=== PATIENT | female | born 2000 | race Caucasian/White ===

== ENCOUNTER 2019-03-22 12:16 | Emergency (ER) | payer BC, MEDICAID ==
[~2019-03-22] VITALS: Ht 154.9 cm; Wt 56.7 kg
[2019-03-22 12:27] VITALS: BP_SYST 127
[2019-03-22] MEDS ORDERED: ONDANSETRON HCL 4 MG/2 ML VIAL IVP ONE (12:45)
[2019-03-22] MEDS ORDERED: NACL 0.9% 1,000 ML IV ONE (12:45)
[2019-03-22] MEDS ORDERED: MORPHINE 4 MG/ML INJ. SYRINGE IVP ONE (12:45)
--- NOTE | 2019-03-22 12:45 | NUR ---
Patient to ER bed 6 to gown for evaluation. Side rails up. Report given to Prosper NEAL.
--- NOTE | 2019-03-22 12:48 | NUR ---
Patient is awake, alert, and oriented x4. is at bedside. Patient reports nausea, vomiting, diarrhea, and abdominal pain since this morning. Patient also reports a similar episode 4 weeks ago that resolved after 12 hours.
--- NOTE | 2019-03-22 12:59 | NUR ---
Patient refused morphine, states she does not want any pain medication. Dr. Kamille Donahue made aware.
[2019-03-22 13:08] LABS: BASOPHILS % (AUTO) 0.3 % (0.0-2.0); EOSINOPHILS # (AUTO) 0.2 K/uL (0.0-0.4); EOSINOPHILS % (AUTO) 1.4 % (0.0-4.0); HEMATOCRIT 43.6 % (36-48); HEMOGLOBIN 14.9 g/dL (12.0-16.0); LYMPHOCYTES # (AUTO) 1.7 K/uL (1.0-5.5); LYMPHOCYTES % (AUTO) 11.4 % (20.5-51.5); MEAN CORPUSCULAR HEMOGLOBIN 33 pg (27-31); MEAN CORPUSCULAR HGB CONC 34 % (32-36); MEAN CORPUSCULAR VOLUME 97 fL (79.0-98.0); MONOCYTES # (AUTO) 1.1 K/uL (0.0-1.0); MONOCYTES % (AUTO) 7.1 % (1.7-9.3); NEUTROPHILS # (AUTO) 12.2 K/uL (1.8-7.7); NEUTROPHILS % (AUTO) 79.8 % (40.0-70.0); PLATELET COUNT (AUTO) 312 K/uL (130-430); RED BLOOD CELL COUNT(AUTO) 4.49 MIL/uL (4.2-6.2); RED CELL DISTRIBUTION WIDTH 13.4 % (9.0-15.0); WHITE BLOOD COUNT (AUTO) 15.3 K/uL (4.8-10.8)
[2019-03-22 13:08] LABS: BILIRUBIN,URINE NEGATIVE (NEGATIVE); BLOOD, URINE NEGATIVE (NEGATIVE); CLARITY/URINE SL CLOUDY (CLEAR); COLOR,URINE YELLOW (YELLOW); GLUCOSE,URINE NEGATIVE (NEGATIVE); KETONES,URINE NEGATIVE (NEGATIVE); LEUKOCYTE ESTERASE ,URINE TRACE (NEGATIVE); NITRITE, URINE NEGATIVE (NEGATIVE); PROTEIN URINE TRACE (NEGATIVE); UROBILINOGEN,URINE 0.2 (0.2-1.0)
[2019-03-22 13:17] LABS: BACTERIA,URINE MODERATE /HPF (None Seen); RBC,URINE 0-3 /HPF (0-3)
[2019-03-22 13:18] LABS: FINE GRANULAR CASTS,URINE 0-10 /LPF (None Seen)
[2019-03-22 13:22] LABS: CREATININE 0.99 mg/dL (0.55-1.30)
[2019-03-22 13:27] LABS: ALBUMIN 4.4 g/dL (3.4-4.8); TOTAL BILIRUBIN 1.6 mg/dL (0.0-1.0)
[2019-03-22] MEDS ORDERED: cefTRIAXone 1 GM IVPB PREMIX 50 ML IV ONE (13:45)
--- NOTE | 2019-03-22 14:47 | NUR ---
Patient given written and verbal discharge instructions and verbalizes understanding. ER MD discussed with patient the results and treatment provided. Patient in stable condition. ID arm band removed. IV catheter removed intact and dressing applied, no active bleeding. Rx of zofran, tylenol, keflex given. Patient educated on pain management and to follow up with PMD. Pain Scale 0/10. Opportunity for questions provided and answered. Medication side effect fact sheet provided.
[2019-03-22 14:48] VITALS: BP_SYST 128
== END 2019-03-22 14:48 | disposition home or self-care (01) ==
LOC: SED 12:16
DX: N39.0 Urinary tract infection, site not specified (principal); R11.10 Vomiting, unspecified; R19.7 Diarrhea, unspecified
CPT/HCPCS: 36415; 80053; 81000; 81025; 83690; 85025; 87086; 96361; 96365; 96375; 99283; J0696; J2405; J7030

== ENCOUNTER 2019-06-18 09:49 | Emergency (ER) | payer BC ==
[~2019-06-18] VITALS: Ht 154.9 cm; Wt 59.0 kg
[2019-06-18 09:50] VITALS: BP_SYST 108
--- NOTE | 2019-06-18 09:50 | NUR ---
BROUGHT BACK TO BED #4 AND TRIAGED. REPORT GIVEN TO WILFRIDO
--- NOTE | 2019-06-18 10:00 | NUR ---
pt arrives from home w/ c/o abd pain. Pt also reports having vaginal spotting and states she is 12 weeks . Will continue to monitor.
--- NOTE | 2019-06-18 10:02 | NUR ---
HCG test is positive.
--- NOTE | 2019-06-18 10:20 | NUR ---
pt provided a urine sample. Sample sent to the lab
[2019-06-18 10:23] LABS: BILIRUBIN,URINE NEGATIVE (NEGATIVE); BLOOD, URINE NEGATIVE (NEGATIVE); CLARITY/URINE CLEAR (CLEAR); COLOR,URINE YELLOW (YELLOW); GLUCOSE,URINE NEGATIVE (NEGATIVE); KETONES,URINE NEGATIVE (NEGATIVE); LEUKOCYTE ESTERASE ,URINE 1+ (NEGATIVE); NITRITE, URINE NEGATIVE (NEGATIVE); PROTEIN URINE NEGATIVE (NEGATIVE); UROBILINOGEN,URINE 0.2 (0.2-1.0)
[2019-06-18 10:28] LABS: BACTERIA,URINE MODERATE /HPF (None Seen)
--- NOTE | 2019-06-18 10:49 | NUR ---
US at the bedside
[2019-06-18 11:02] LABS: BASOPHILS % (AUTO) 0.3 % (0.0-2.0); EOSINOPHILS # (AUTO) 0.2 K/uL (0.0-0.4); EOSINOPHILS % (AUTO) 2.1 % (0.0-4.0); HEMATOCRIT 37.4 % (36-48); HEMOGLOBIN 12.6 g/dL (12.0-16.0); LYMPHOCYTES # (AUTO) 1.8 K/uL (1.0-5.5); LYMPHOCYTES % (AUTO) 18.2 % (20.5-51.5); MEAN CORPUSCULAR HEMOGLOBIN 33 pg (27-31); MEAN CORPUSCULAR HGB CONC 34 % (32-36); MEAN CORPUSCULAR VOLUME 97 fL (79.0-98.0); MONOCYTES # (AUTO) 0.5 K/uL (0.0-1.0); MONOCYTES % (AUTO) 5.5 % (1.7-9.3); NEUTROPHILS # (AUTO) 7.2 K/uL (1.8-7.7); NEUTROPHILS % (AUTO) 73.9 % (40.0-70.0); PLATELET COUNT (AUTO) 253 K/uL (130-430); RED BLOOD CELL COUNT(AUTO) 3.86 MIL/uL (4.2-6.2); WHITE BLOOD COUNT (AUTO) 9.8 K/uL (4.8-10.8)
[2019-06-18] MEDS ORDERED: NITROFURANTOIN MONOHYD/M-CRYST 100 MG CAPSULE PO ONE (11:30)
[2019-06-18 12:00] VITALS: BP_SYST 114
--- NOTE | 2019-06-18 12:00 | NUR ---
Patient given written and verbal discharge instructions and verbalizes understanding. ER MD discussed with patient the results and treatment provided. Patient in stable condition. ID arm band removed. Rx of MACROBID given. Patient educated on pain management and to follow up with PMD. Pain Scale 0/10. Opportunity for questions provided and answered. Medication side effect fact sheet provided.
== END 2019-06-18 12:00 | disposition home or self-care (01) ==
LOC: SED 09:49
DX: O20.0 Threatened abortion (principal); Z3A.01 Less than 8 weeks gestation of pregnancy
CPT/HCPCS: 36415; 76805-TC; 81000-TC; 84702-TC; 85025; 86900; 86901; 87086; 99284